=== PATIENT | female | born 1970 | race Caucasian/White ===

== ENCOUNTER 2018-02-04 15:24 | Outpatient (REF) | payer BC, SELFPAY ==
[2018-02-04 22:32] LABS: ALT 48 U/L (12-78); AST 27 U/L (15-37); Albumin 3.5 g/dL (3.4-5.0); Alkaline Phosphatase 100 U/L (46-116); Anion Gap 10.1 mmol/L (3-11); BUN 14 mg/dL (7-18); Bilirubin, Total 1.3 mg/dL (0.2-1.0); CO2 25.9 mmol/L (21.0-32.0); CREATININE 0.61 mg/dL (0.55-1.02); Calcium 8.4 mg/dL (8.5-10.1); Chloride 100 mmol/L (98-107); Glucose 299 mg/dL (70-100); Potassium 4.3 mmol/L (3.5-5.1); Sodium 136 mmol/L (136-145); Total Protein 7.2 g/dL (6.4-8.2)
== END 2018-02-04 15:44 ==
LOC: NCHCN 15:24
PROVIDERS: PCP Nurse Practitioner Family; Visit Provider Nurse Practitioner Family
DX: E11.65 Type 2 diabetes mellitus with hyperglycemia (principal); I10 Essential (primary) hypertension; E78.5 Hyperlipidemia, unspecified; F39 Unspecified mood [affective] disorder; G47.30 Sleep apnea, unspecified; E66.9 Obesity, unspecified
CPT/HCPCS: 80053; 83036

== ENCOUNTER 2018-03-25 12:14 | Outpatient (CLI) | payer BC, SELFPAY ==
[2018-03-25 15:16] LABS: Hemoglobin A1C 10.3 % (4.5-6.2)
[2018-03-26 17:26] LABS: Fructosamine 342 mcmol/L (200 - 285)
== END 2018-03-25 12:34 ==
PROVIDERS: PCP Nurse Practitioner Family; Visit Provider Internal Medicine Endocrinology, Diabetes & Metabolism
DX: E11.65 Type 2 diabetes mellitus with hyperglycemia (principal)
CPT/HCPCS: 36415; 82985; 83036

== ENCOUNTER 2018-05-17 01:20 | Outpatient (CLI) | payer BC, SELFPAY ==
[2018-05-17] MEDS: Gadoterate meglumine 20 ML VIAL IVP (09:36)
--- NOTE | 2018-05-17 09:51 | DI.MRI_ITS ---
SYMPTOM/DIAGNOSIS: H/O L 4-5 DISCECTOMY, LT SCIATICA, CONTINUED PAIN RADIATING DOWN LEG LUMBAR SPINE MRI: Comparison is made with 11/13/16. T 1, T 2 and STIR sagittal, T 1 and T 2 axial and pre and post Dotarem fat suppressed T 1 axial and sagittal sequences were performed. The patient is status post surgery at L 4-5 for the previously noted left paracentral disc herniation. There is surgical scarring in the posterior soft tissues at this level. There is enhancement seen in the location of the previously noted herniated disc on the left in the left paracentral region extending along the left side of the canal at the level of the left laminectomy. The findings are consistent with post surgical scarring. There are mild facet degenerative changes and no neural foraminal narrowing at any level. There are stable degenerative disc changes at L 5-S 1 with mild disc bulging slightly eccentric toward the left. There is no significant central canal stenosis at any level. The more superior discs are intact. The conus medullaris appears normal. There are degenerative signal changes in the vertebral endplates at L 5-S 1. The marrow signal is otherwise normal. The aorta is normal in diameter. IMPRESSION: Findings consistent with left side post surgical scarring at L 4- 5 in the previous location of the left paracentral disc herniation.
== END 2018-05-17 01:40 ==
PROVIDERS: PCP Nurse Practitioner Family; Visit Provider Nurse Practitioner Family
DX: M54.42 Lumbago with sciatica, left side (principal); M54.17 Radiculopathy, lumbosacral region; M47.27 Other spondylosis with radiculopathy, lumbosacral region; Z98.890 Other specified postprocedural states
CPT/HCPCS: 72158

== ENCOUNTER 2018-08-01 12:54 | Outpatient (CLI) | payer BC, SELFPAY ==
[2018-08-02 16:34] LABS: Fructosamine 327 mcmol/L (200 - 285)
== END 2018-08-01 13:14 ==
PROVIDERS: PCP Nurse Practitioner Family; Visit Provider Internal Medicine Endocrinology, Diabetes & Metabolism
DX: E11.65 Type 2 diabetes mellitus with hyperglycemia (principal)
CPT/HCPCS: 36415; 82985

== ENCOUNTER 2018-08-06 16:34 | Outpatient (REF) | payer BC, SELFPAY ==
[2018-08-06 22:04] LABS: Abs Immature Grans 0.03 k/cumm (0.0-0.09); Absolute Basophil Count 0.03 k/cumm (0.0-0.2); Absolute Eosinophil Count 0.69 k/cumm (0.0-0.7); Absolute Lymphocyte Count 3.33 k/cumm (1.2-3.4); Absolute Monocyte Count 0.76 k/cumm (0.11-0.7); Absolute Neutrophil Count 4.61 k/cumm (1.2-6.7); Basophils % 0.3; Eosinophils % 7.3; HCT 45.4 % (36.0-46.0); HGB 14.7 g/dL (12.0-15.5); Immature Grans % 0.3; Lymphocytes % 35.2; Mean Corp. HGB Concentration 32.4 g/dL (32.0-36.0); Mean Corpuscular Hemoglobin 27.9 pg (27.0-33.0); Mean Corpuscular Volume 86.1 fL (80-95); Mean Platelet Volume 12.2 fL (8.0-11.0); Neutrophils % 48.9; Platelet Count 292 x1000/uL (130-400); RBC 5.27 m/cumm (4.00-5.20); RBC Distribution Width 13.4 % (11.7-14.6); White Blood Cell Count 9.45 k/cumm (4.4-10.8)
[2018-08-06 22:20] LABS: TSH (W/Ref FT4) 1.42 uIU/mL (0.358-3.74)
== END 2018-08-06 16:54 ==
LOC: NCHCN 16:34
PROVIDERS: PCP Nurse Practitioner Family; Visit Provider Nurse Practitioner Family
DX: E78.5 Hyperlipidemia, unspecified (principal); I10 Essential (primary) hypertension; F39 Unspecified mood [affective] disorder; G25.81 Restless legs syndrome; G47.33 Obstructive sleep apnea (adult) (pediatric); N39.46 Mixed incontinence
CPT/HCPCS: 84443; 85025

== ENCOUNTER 2018-08-20 00:21 | Outpatient (CLI) | payer BC, SELFPAY ==
--- NOTE | 2018-08-20 12:49 | DI.US_ITS ---
SYMPTOMS/DIAGNOSIS: SKIN NODULE, R22.9, LEFT SIDE ULTRASOUND OF THE NECK: The palpable abnormality corresponds to an enlarged lymph node measuring 2.6 cm in length x 0.6 x 0.9 cm. Other smaller lymph nodes are seen, which also appear mildly enlarged. IMPRESSION: Multiple enlarged lymph nodes on the left side of the neck, consistent with the patient's history of Castleman's disease.
== END 2018-08-20 00:41 ==
PROVIDERS: PCP Nurse Practitioner Family; Visit Provider Nurse Practitioner Family
DX: R22.1 Localized swelling, mass and lump, neck (principal); R59.0 Localized enlarged lymph nodes; D47.Z2 Castleman disease
CPT/HCPCS: 76536

== ENCOUNTER 2018-09-25 00:40 | Outpatient (CLI) | payer BC, SELFPAY ==
--- NOTE | 2018-09-25 08:00 | DI.US_ITS ---
SYMPTOM/DIAGNOSIS: ENLARGED LYMPH NODES R59.9 THYROID ULTRASOUND: Routine examination was performed. The left lobe measures 4.3 x 1.2 x 1.7 cm. No cystic or solid masses are seen in the left lobe. There is normal blood flow to the left lobe of the thyroid gland. The right lobe measures 4.3 x 1.7 x 1.7 cm. There are a few tiny well circumscribed cystic lesions in the right lobe. The largest measures 0.4 cm in diameter. No internal blood flow is seen. No associated echogenic foci are seen to suggest calcification. There is normal blood flow to the right lobe of the thyroid gland. The isthmus is within normal limits. There is a 4 mm cystic lesion in the isthmus. No internal blood flow or calcification is identified. IMPRESSION: Benign appearing cystic thyroid lesions. No findings are seen in these lesions to suggest malignancy.
== END 2018-09-25 01:00 ==
PROVIDERS: PCP Nurse Practitioner Family; Visit Provider Otolaryngology Otolaryngology/Facial Plastic Surgery
DX: R59.0 Localized enlarged lymph nodes (principal); E04.2 Nontoxic multinodular goiter
CPT/HCPCS: 76536

== ENCOUNTER 2018-10-03 11:38 | Outpatient (CLI) | payer BC, SELFPAY ==
[2018-10-03 13:58] LABS: Ferritin 83 ng/mL (8-388)
== END 2018-10-03 11:58 ==
PROVIDERS: PCP Nurse Practitioner Family; Visit Provider Nurse Practitioner
DX: M25.50 Pain in unspecified joint (principal)
CPT/HCPCS: 36415; 82728

== ENCOUNTER 2018-10-23 17:13 | Emergency (ER) | payer BC, SELFPAY ==
[2018-10-23] VITALS (7 sets, daily range): BP systolic 124–137; BP diastolic 76–88; PULSE 102–118; RESP 14–18; TEMP 37.1; O2SAT 91–95
[2018-10-23] MEDS: Normal Saline 1,000 ML 1000 ML IV ×3 (18:45→19:46)
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
[2018-10-23] MEDS: diazePAM 5 MG TAB PO (19:09)
[2018-10-23] MEDS: Ketorolac 30 MG/ML VIAL IVP (19:10)
[2018-10-23] MEDS: predniSONE 20 MG TAB 60 MG PO (19:10)
[2018-10-23 19:23] LABS: Abs Immature Grans 0.06 k/cumm (0.0-0.09); Absolute Basophil Count 0.04 k/cumm (0.0-0.2); Absolute Lymphocyte Count 3.76 k/cumm (1.2-3.4); Absolute Monocyte Count 0.88 k/cumm (0.11-0.7); Basophils % 0.3; Eosinophils % 3.6; HCT 46.3 % (36.0-46.0); HGB 15.5 g/dL (12.0-15.5); Immature Grans % 0.4; Lymphocytes % 26.9; Mean Corp. HGB Concentration 33.5 g/dL (32.0-36.0); Mean Corpuscular Volume 83.7 fL (80-95); Mean Platelet Volume 11.4 fL (8.0-11.0); Monocytes % 6.3; Neutrophils % 62.5; Platelet Count 336 x1000/uL (130-400); RBC 5.53 m/cumm (4.00-5.20); RBC Distribution Width 13.3 % (11.7-14.6); White Blood Cell Count 13.98 k/cumm (4.4-10.8)
[2018-10-23 19:24] LABS: Absolute Neutrophil Count 8.74 k/cumm (1.2-6.7)
[2018-10-23 19:40] LABS: Anion Gap 9.7 mmol/L (3-11); BUN 12 mg/dL (7-18); CO2 26.3 mmol/L (21.0-32.0); CREATININE 0.83 mg/dL (0.55-1.02); Calcium 9.1 mg/dL (8.5-10.1); Chloride 100 mmol/L (98-107); Glucose 360 mg/dL (70-100); Sodium 136 mmol/L (136-145)
[2018-10-23 19:58] LABS: D-Dimer 349 ng/mlFEU (<500)
[2018-10-23] MEDS: oxyCODONE 5 MG TAB 15 MG PO (20:28)
== END 2018-10-23 20:34 | disposition home or self-care (01) ==
PROVIDERS: Emergency Provider Physician Assistant; PCP Nurse Practitioner Family
DX: M54.5 Low back pain (principal); G89.29 Other chronic pain; R42 Dizziness and giddiness; E11.65 Type 2 diabetes mellitus with hyperglycemia; Z79.4 Long term (current) use of insulin; I10 Essential (primary) hypertension; E11.40 Type 2 diabetes mellitus with diabetic neuropathy, unspecified
CPT/HCPCS: 36415; 80048; 93005; 96360; 96361; 99284; 85025; 85379; 93010; 99285; J1885; J7512

== ENCOUNTER 2018-11-05 13:19 | Outpatient (CLI) | payer BC, SELFPAY ==
[2018-11-05 14:08] LABS: Hemoglobin A1C 10.8 % (4.5-6.2)
[2018-11-05 14:10] LABS: COMMENT (LAB VIEW ONLY) 111.47 mg/dL; Microalb ug/mg Crea 38.8 ug/mg Cr
[2018-11-06 15:55] LABS: Fructosamine 368 mcmol/L (200 - 285)
== END 2018-11-05 13:39 ==
PROVIDERS: PCP Nurse Practitioner Family; Visit Provider Internal Medicine Endocrinology, Diabetes & Metabolism
DX: E11.65 Type 2 diabetes mellitus with hyperglycemia (principal)
CPT/HCPCS: 36415; 82043; 82570; 82985; 83036

== ENCOUNTER 2018-11-07 13:18 | Outpatient (REF) | payer BC, SELFPAY ==
[2018-11-07 21:39] LABS: ALT 59 U/L (14-59); AST 28 U/L (15-37); Albumin 3.5 g/dL (3.4-5.0); Alkaline Phosphatase 82 U/L (46-116); Bilirubin, Total 0.9 mg/dL (0.2-1.0); Magnesium 1.3 mg/dL (1.8-2.4); Total Protein 7.6 g/dL (6.4-8.2)
[2018-11-07 22:30] LABS: Vitamin B12 484 pg/mL (193-986)
[2018-11-07 23:10] LABS: Vitamin D 25 Total 56.2 ng/ml (30-100)
== END 2018-11-07 13:38 ==
LOC: NCHCN 13:18
PROVIDERS: PCP Nurse Practitioner Family; Visit Provider Nurse Practitioner Family
DX: F39 Unspecified mood [affective] disorder (principal); G47.30 Sleep apnea, unspecified; R00.0 Tachycardia, unspecified; I10 Essential (primary) hypertension; E78.5 Hyperlipidemia, unspecified; E11.65 Type 2 diabetes mellitus with hyperglycemia; N39.46 Mixed incontinence; E66.9 Obesity, unspecified; M54.32 Sciatica, left side
CPT/HCPCS: 80076; 82306; 82607; 83735

== ENCOUNTER 2018-11-14 02:39 | Outpatient (CLI) | payer BC, SELFPAY ==
--- NOTE | 2018-11-18 11:23 | HOLTER_ITS ---
DATE OF DICTATION: November 18, 2018 STUDY INDICATION: Tachycardia. REQUESTING PROVIDER: Not available. FINDINGS: The patient was monitored for 2 days. Baseline sinus rhythm. Average heart rate 94 bpm, range 74 to 149 bpm. Rare ectopy. No ventricular or supraventricular tachycardia. No high-degree heart block. No pauses greater than 3 seconds. No patient events. FINAL INTERPRETATION: Normal study.
== END 2018-11-14 02:59 ==
PROVIDERS: PCP Nurse Practitioner Family; Visit Provider Nurse Practitioner Family
DX: R00.0 Tachycardia, unspecified (principal)
CPT/HCPCS: 93225

== ENCOUNTER 2018-11-18 09:13 | Outpatient (CLI) | payer BC, SELFPAY | END 2018-11-18 09:33 | PROVIDERS: PCP Nurse Practitioner Family; Visit Provider Nurse Practitioner Family | DX: R00.0 Tachycardia, unspecified (principal) | CPT/HCPCS: 93226 ==

== ENCOUNTER 2018-12-11 12:29 | Outpatient (CLI) | payer BC, SELFPAY ==
--- NOTE | 2018-12-11 15:33 | DI.US_ITS ---
EXAM: US SOFT TISSUE HEAD OR NECK CLINICAL HISTORY: CASTLETMAN'S DISEASE, R59.9, NEW LEFT CERVICAL ADENOPATHY. TECHNIQUE: Ultrasound performed using standard protocol. COMPARISON: No exams were available for comparison FINDINGS: Ultrasound examination of the cervical region was performed in a patient with known Castleman's disea se. The patient reportedly has new left cervical adenopathy. Ultrasound examination of the neck jovan ws multiple enlarged lymph nodes, the largest about 25 x 15 x 13 millimeters in diameter with poorly defined hilum consistent with a pathologic node. Slightly increased vascular flow noted in the large st node. Prior study showed largest left cervical lymph node about 22 millimeters in greatest diamet er. CT would provide more accurate evaluation of total cervical lymphadenopathy. IMPRESSION:
== END 2018-12-11 12:49 ==
PROVIDERS: PCP Nurse Practitioner Family; Visit Provider Internal Medicine Hematology & Oncology
DX: R59.0 Localized enlarged lymph nodes (principal); D47.Z2 Castleman disease
CPT/HCPCS: 76536

== ENCOUNTER 2018-12-23 11:08 | Outpatient (CLI) | payer BC, SELFPAY ==
[2018-12-23 12:37] LABS: Anion Gap 9.2 mmol/L (3-11); BUN 14 mg/dL (7-18); CO2 27.8 mmol/L (21.0-32.0); CREATININE 0.63 mg/dL (0.55-1.02); Calcium 8.5 mg/dL (8.5-10.1); Chloride 99 mmol/L (98-107); Glucose 252 mg/dL (70-100); Potassium 4.4 mmol/L (3.5-5.1); Sodium 136 mmol/L (136-145)
[2018-12-23 14:52] LABS: Magnesium 1.5 mg/dL (1.8-2.4)
[2018-12-24 17:02] LABS: Fructosamine 346 mcmol/L (200 - 285)
== END 2018-12-23 11:28 ==
PROVIDERS: PCP Nurse Practitioner Family; Visit Provider Internal Medicine Endocrinology, Diabetes & Metabolism
DX: E83.42 Hypomagnesemia (principal); R00.0 Tachycardia, unspecified; I10 Essential (primary) hypertension; E11.65 Type 2 diabetes mellitus with hyperglycemia
CPT/HCPCS: 36415; 80048; 82985; 83735

== ENCOUNTER 2019-02-06 14:30 | Outpatient (REF) | payer BC, SELFPAY ==
[2019-02-06 22:04] LABS: Anion Gap 10.8 mmol/L (3-11); BUN 13 mg/dL (7-18); CO2 26.2 mmol/L (21.0-32.0); CREATININE 0.75 mg/dL (0.55-1.02); Calcium 9.1 mg/dL (8.5-10.1); Chloride 100 mmol/L (98-107); Glucose 370 mg/dL (74-106); Magnesium 1.4 mg/dL (1.8-2.4); Potassium 4.6 mmol/L (3.5-5.1); Sodium 137 mmol/L (136-145)
== END 2019-02-06 14:50 ==
LOC: NCHCN 14:30
PROVIDERS: PCP Nurse Practitioner Family; Visit Provider Nurse Practitioner Family
DX: E83.42 Hypomagnesemia (principal); E11.65 Type 2 diabetes mellitus with hyperglycemia; R51 Headache; R00.0 Tachycardia, unspecified; F43.23 Adjustment disorder with mixed anxiety and depressed mood; J30.9 Allergic rhinitis, unspecified
CPT/HCPCS: 80048; 83735

== ENCOUNTER 2019-03-18 14:04 | Outpatient (REF) | payer BC, SELFPAY ==
[2019-03-18 21:21] LABS: Magnesium 1.4 mg/dL (1.8-2.4)
== END 2019-03-18 14:24 ==
LOC: NCHCN 14:04
PROVIDERS: PCP Nurse Practitioner Family; Visit Provider Nurse Practitioner Family
DX: E83.42 Hypomagnesemia (principal)
CPT/HCPCS: 83735

== ENCOUNTER 2019-04-17 11:17 | Outpatient (REF) | payer BC, SELFPAY ==
[2019-04-17 21:35] LABS: Magnesium 1.4 mg/dL (1.8-2.4)
== END 2019-04-17 11:37 ==
LOC: NCHCN 11:17
PROVIDERS: PCP Nurse Practitioner Family; Visit Provider Nurse Practitioner Family
DX: E83.42 Hypomagnesemia (principal)
CPT/HCPCS: 83735

== ENCOUNTER 2019-08-15 10:54 | Outpatient (REF) | payer BC, SELFPAY ==
[2019-08-15 21:19] LABS: Magnesium 1.6 mg/dL (1.8-2.4)
== END 2019-08-15 11:14 ==
LOC: NCHCN 10:54
PROVIDERS: PCP Nurse Practitioner Family; Visit Provider Nurse Practitioner Family
DX: R11.0 Nausea (principal); R51 Headache; E83.42 Hypomagnesemia; F41.8 Other specified anxiety disorders; E11.65 Type 2 diabetes mellitus with hyperglycemia; I10 Essential (primary) hypertension; E78.5 Hyperlipidemia, unspecified
CPT/HCPCS: 83735

== ENCOUNTER 2019-10-21 02:33 | Outpatient (CLI) | payer BC, SELFPAY ==
[2019-10-21 15:49] LABS: ALT 66 U/L (14-59); AST 34 U/L (15-37); Albumin 3.4 g/dL (3.4-5.0); Alkaline Phosphatase 108 U/L (46-116); BUN 18 mg/dL (7-18); CREATININE 0.76 mg/dL (0.55-1.02); Calcium 9.2 mg/dL (8.5-10.1); Chloride 100 mmol/L (98-107); Glucose 281 mg/dL (74-106); Potassium 4.5 mmol/L (3.5-5.1); Sodium 138 mmol/L (136-145); Total Protein 7.4 g/dL (6.4-8.2)
[2019-10-21 16:33] LABS: Hemoglobin A1C 11.1 % (3.8-5.6)
[2019-10-23 10:04] LABS: Fructosamine 324 mcmol/L (200 - 285)
== END 2019-10-21 02:53 ==
PROVIDERS: PCP Nurse Practitioner Family; Visit Provider Internal Medicine Endocrinology, Diabetes & Metabolism
DX: E11.65 Type 2 diabetes mellitus with hyperglycemia (principal)
CPT/HCPCS: 36415; 80053; 82985; 83036

== ENCOUNTER 2019-10-27 10:56 | Outpatient (CLI) | payer BC, SELFPAY ==
--- NOTE | 2019-10-27 11:20 | DI.RAD_ITS ---
EXAM: XR CHEST 2V PA LATERAL CLINICAL HISTORY: CHEST WALL PAIN R07.89, LT BREAST PAIN N64.4 TECHNIQUE: COMPARISON: CR CHEST 2 VIEWS PA,LAT from 03/28/2017 FINDINGS: The heart is not enlarged. In comparison with prior radiographs of March 2017, there is question o f new area faint consolidation involving the lingula. Mild elevation of diaphragm noted on the left unchanged from prior radiographs. No pleural effusion or pneumothorax. Lungs are otherwise clear. IMPRESSION: Question consolidation or atelectasis in the lingula. Possibility of infectious process is raised. Follow-up radiographs requested following treatment. RADIATION DOSE DELIVERED: Total DLP
== END 2019-10-27 11:16 ==
PROVIDERS: PCP Nurse Practitioner Family; Visit Provider Nurse Practitioner Family
DX: R07.89 Other chest pain (principal); R91.8 Other nonspecific abnormal finding of lung field
CPT/HCPCS: 71046

== ENCOUNTER 2019-10-28 01:03 | Outpatient (CLI) | payer BC, SELFPAY ==
--- NOTE | 2019-10-28 | DI.US_ITS ---
EXAM: MG MAMMO DIAGNOSTIC BI CLINICAL HISTORY: DIAGNOSTIC, LT BREAST MASS,N63.0,LT BREAST MASS,N64.4 TECHNIQUE: Mammograms were interpreted according to the usual protocol including computer analysis w [employer] CAD system, tomosynthesis and C-view imaging. COMPARISON: FINDINGS: Left breast mammogram and left breast ultrasound are interpreted conjunction. The patient reportedly has question of a palpable area of abnormality of the 2 o'clock position of the left breast. The breasts of moderate density with fairly symmetrical distribution of fibroglandular tissue. No do minant mass or clumped microcalcification is identified in either breast. The current examination is compared with previous examination of September 2017 and there has been no gross interval change appearan ce since that time. Breast ultrasound shows no evidence of a mass or cyst in the region of questionable palpable abnormal ity or elsewhere in the breast. IMPRESSION: No specific evidence of malignancy at this time. The negative mammogram and ultrasound not absolutel y exclude the possibility of malignancy and should not preclude biopsy of any clinically suspicious p alpable breast mass. Routine screening examinations suggested at yearly intervals in this age group according to the ACS ACR guidelines. BI-RADS Category 1 - Negative Breast Density - Category B - Scattered areas of fibroglandular density
== END 2019-10-28 01:23 ==
PROVIDERS: PCP Nurse Practitioner Family; Visit Provider Nurse Practitioner Family
DX: N64.4 Mastodynia (principal); N63.20 Unspecified lump in the left breast, unspecified quadrant; Z12.39 Encounter for other screening for malignant neoplasm of breast
CPT/HCPCS: 76642; 77062; 77066; G0279

== ENCOUNTER 2019-10-28 03:25 | Outpatient (CLI) | payer BC, SELFPAY ==
[2019-10-28 11:46] LABS: Creatine Kinase 113 U/L (26-192); Troponin I < 0.05 ng/mL (<0.06)
== END 2019-10-28 03:45 ==
PROVIDERS: PCP Nurse Practitioner Family; Visit Provider Nurse Practitioner Family
DX: R07.89 Other chest pain (principal); N64.4 Mastodynia
CPT/HCPCS: 36415; 82550; 84484

== ENCOUNTER 2019-10-31 03:11 | Outpatient (CLI) | payer BC, SELFPAY ==
[2019-11-02 02:33] LABS: COVID-19 RT-PCR Result NEGATIVE (Negative)
== END 2019-10-31 03:31 ==
PROVIDERS: PCP Nurse Practitioner Family; Visit Provider Nurse Anesthetist, Certified Registered
DX: Z11.59 Encounter for screening for other viral diseases (principal); Z01.818 Encounter for other preprocedural examination
CPT/HCPCS: U0003

== ENCOUNTER 2020-01-06 14:03 | Outpatient (REF) | payer BC, SELFPAY ==
[2020-01-06 21:48] LABS: ALT 65 U/L (14-59); AST 40 U/L (15-37); Albumin 3.6 g/dL (3.4-5.0); Alkaline Phosphatase 121 U/L (46-116); Anion Gap 7.7 mmol/L (3-11); BUN 13 mg/dL (7-18); Bilirubin, Total 0.8 mg/dL (0.2-1.0); CO2 28.3 mmol/L (21.0-32.0); CREATININE 0.82 mg/dL (0.55-1.02); Calcium 9.1 mg/dL (8.5-10.1); Chloride 100 mmol/L (98-107); Glucose 261 mg/dL (74-106); Magnesium 1.4 mg/dL (1.8-2.4); Potassium 4.5 mmol/L (3.5-5.1); Sodium 136 mmol/L (136-145); Total Protein 7.7 g/dL (6.4-8.2)
== END 2020-01-06 14:23 ==
LOC: NCHCN 14:03
PROVIDERS: PCP Nurse Practitioner Family; Visit Provider Nurse Practitioner Family
DX: E11.65 Type 2 diabetes mellitus with hyperglycemia (principal); K59.03 Drug induced constipation; R07.89 Other chest pain; R11.0 Nausea; F41.8 Other specified anxiety disorders; F43.23 Adjustment disorder with mixed anxiety and depressed mood; L40.50 Arthropathic psoriasis, unspecified; G47.30 Sleep apnea, unspecified
CPT/HCPCS: 80053; 83735

== ENCOUNTER 2020-01-26 04:38 | Outpatient (CLI) | payer BC, SELFPAY ==
[2020-01-26 12:50] LABS: ALT 57 U/L (14-59); AST 36 U/L (15-37); Albumin 3.4 g/dL (3.4-5.0); Alkaline Phosphatase 113 U/L (46-116); Anion Gap 11.3 mmol/L (3-11); BUN 13 mg/dL (7-18); Bilirubin, Total 0.8 mg/dL (0.2-1.0); CO2 25.7 mmol/L (21.0-32.0); CREATININE 0.73 mg/dL (0.55-1.02); Calcium 8.3 mg/dL (8.5-10.1); Chloride 101 mmol/L (98-107); Glucose 272 mg/dL (74-106); Potassium 4.2 mmol/L (3.5-5.1); Sodium 138 mmol/L (136-145); Total Protein 7.3 g/dL (6.4-8.2)
[2020-01-26 14:25] LABS: Hemoglobin A1C 7.8 % (<5.7)
[2020-01-27 17:15] LABS: Fructosamine 237 mcmol/L (200 - 285)
== END 2020-01-26 04:58 ==
PROVIDERS: PCP Nurse Practitioner Family; Visit Provider Internal Medicine Endocrinology, Diabetes & Metabolism
DX: E11.65 Type 2 diabetes mellitus with hyperglycemia (principal)
CPT/HCPCS: 36415; 80053; 82985; 83036

== ENCOUNTER 2020-02-23 03:05 | Outpatient (CLI) | payer BC, SELFPAY ==
[2020-02-24 21:50] LABS: COVID-19 RT-PCR UVMMC Result Negative (Negative)
== END 2020-02-23 03:25 ==
PROVIDERS: Surgery; PCP Nurse Practitioner Family; Visit Provider Nurse Anesthetist, Certified Registered
DX: Z11.59 Encounter for screening for other viral diseases (principal); Z01.818 Encounter for other preprocedural examination
CPT/HCPCS: U0003

== ENCOUNTER 2020-03-01 03:30 | Outpatient (CLI) | payer BC, SELFPAY ==
[2020-03-03 09:39] LABS: COVID-19 RT-PCR Result NEGATIVE (Negative)
== END 2020-03-01 03:50 ==
PROVIDERS: PCP Nurse Practitioner Family; Visit Provider Surgery
DX: Z11.59 Encounter for screening for other viral diseases (principal); Z01.818 Encounter for other preprocedural examination
CPT/HCPCS: U0003

== ENCOUNTER 2020-03-04 07:12 | Day surgery (SDC) | payer BC, SELFPAY ==
[2020-03-04 07:08] VITALS: BP 95/51; PULSE 91; RESP 20; TEMP 36.7; O2SAT 95
[2020-03-04] MEDS: Lactated Ringers 1,000 ML 80 ML IV (07:47)
--- NOTE | 2020-03-04 10:08 | STOM_PTH ---
PATIENT: VU PARRA LOC: [facility] U#:[id number] AGE/SX: 49/F ROOM: RE03/04/[address]: Kyung Aburto : 1970 BED: DIS: 03/04/2020 SPEC #: [id number] RECD: 03/04/20 12:53 STATUS: HUBERT REQ #: [id number] CAROL: 03/04/20 10:[address]: Kyung Aburto DEPT: Surgical Specimen RECD BY: Alisha Nix ENTERED: 03/04/20 12:54 SP TYPE: STOMACH OTHR DR: Leslie Sherman Tissues: 1 - BIOPSY BOWEL 2 - STOMACH BIOPSY 3 - ESOPHAGUS BIOPSY Procedures: GROSS AND MICRO LEVEL 4 Comments: [id number]
--- NOTE | 2020-03-04 10:18 | ENDO_ITS ---
Date of service: 03/04/20 Time of Service: 10:18 Endoscopy Report DATE OF PROCEDURE: 03/04/20 PRE-OP DIAGNOSIS: gerd/abdominal pain POST-OP DIAGNOSIS: other (mild gasritis. still had lg volume of food. ) SURGEON: Kyung Aburto ANESTHESIA: MAC ESTIMATED BLOOD LOSS: 0 PATHOLOGY: other DISPOSITION: same day PROCEDURE DESCRIPTION: After informed consent was obtained the patient was take to the procedure room and placed in a supine position. Monitors were applied and a time out was done. The patients name, date of , procedure type, allergies to medications and metal in their body was reviewed. A bite block was placed and the patient was sedated. Once sedated and comfortable the gas troscope was advanced through the oropharynx which was grossly normal into the esophagus. The proximal and mid-esophagus were nl. In the distal esophagus there was: No esophageal erosions, varices, diverticulum, or stricture apparent. There is no hiatal hernia. The scope was advanced into the stomach. The stomach was still full of food. This obscured at least 25 to 30%/the lower portion of the stomach. I was able to work the scope into the duodenum. The duodenum appeared normal. Biopsies were done of the duodenum and antrum and at the GE junction. The duodenum was noted to be nl. Biopsies were done. I did attempt to suction out the stomach, the pieces were quite large and kept clogging up the scope. The scope was retroflexed. The cardia and fundus were noted to be normal-what I could visualize. The scope was retracted back into the esophagus and biopsies were done of the GE junction to rule out Rodney's. At this point I did discuss the patient's full stomach with anesthesia. We determined that in light of her having basically a full stomach, that this was an unsafe procedure. The patient has a BMI of 46/diabetes mellitus/sleep apnea/diabetes with neuropathy and a full stomach. The EGD was ended and the colonoscopy was not attempted. Patient was brought back to same day. She did not appear to aspirate The scope was removed and the patient was woken up and taken back to [facility] in stable condition.
[2020-03-04 10:46] VITALS: BP 117/64; PULSE 92; RESP 15; TEMP 36.3; O2SAT 94
--- NOTE | 2020-03-04 11:21 | W.PM.DSUDISC ---
Discharge Plan Disposition Patient Disposition: HOME Condition: Good Discharge Details Reason For Visit: stomach scope Attending Provider: Kyung Aburto Primary Care Provider: Leslie Sherman Home Meds and New Rx's Prescriptions: New omeprazole 20 mg capsule,delayed release(DR/EC) 20 mg PO DAILY Qty: 30 RF: 12 Continued insulin lispro [Humalog KwikPen Insulin] 100 unit/mL insulin pen See Rx Instructions SC AC RF: 0 oxycodone 5 mg tablet 5 mg PO Q6H PRNRF: 0 atorvastatin 20 MG tablet 20 mg PO DAILY RF: 0 Mirena 1 EACH intrauterine device 1 ea Intrauterine ONCE Qty: 1 RF: 0 Lantus Solostar U-100 Insulin 100 UNIT/1 ML insulin pen 65 units SQ HS RF: 0 gabapentin 300 mg capsule 900 mg PO TID RF: 0 metformin 500 mg tablet 1,000 mg PO BID RF: 0 Cosentyx (2 Syringes) 150 mg/mL syringe 150 mg SC QMONTH RF: 0 spironolactone 25 mg tablet 25 mg PO DAILY RF: 0 Slow-Mag 71.5 mg tablet,delayed release (DR/EC) 71.5 mg PO BID RF: 0 sennosides [Senna Lax] 8.6 mg tablet 17.2 mg PO QHS RF: 0 Trulicity 1.5 mg/0.5 mL pen injector 1.5 mg subcut QWEEK RF: 0 nystatin 100,000 unit/gram cream 1 applic topical BID RF: 0 epinephrine 0.3 MG/0.3 ML auto-injector 0.3 mg IJ PRN PRN (Reason: Anaphylaxis) Qty: 1 RF: 0 loratadine 10 MG tablet 10 mg PO QAM RF: 0 losartan 25 mg tablet 50 mg PO HS RF: 0 tolterodine [Detrol] 2 MG tablet 2 mg PO BID RF: 0 cholecalciferol (vitamin D3) [Vitamin D3] 2,000 unit Capsule 2,000 unit PO DAILY RF: 0 duloxetine [Cymbalta] 60 mg Capsule,Delayed Release(Dr/Ec) 60 mg PO DAILY RF: 0 methocarbamol [Robaxin-750] 750 mg tablet 750 mg PO QID PRN (Reason: muscle spasm) Qty: 10 RF: 0 ibuprofen 600 mg tablet 600 mg PO Q6H PRN (Reason: pain) Qty: 20 RF: 0 Discontinued pantoprazole [Protonix] 40 mg tablet,delayed release (DR/EC) 40 mg PO HS RF: 0 Discharge Instructions Additional Instructions: Findings:retained solid food in stomach Follow up: My office will contact you after the gastric emptying study is complete. Please call if you develop: fevers >101.5 Nausea or Vomiting Abdominal pain that is not transient DAY SURGERY UNIT POST COLONOSCOPY INSTRUCTIONS 1. Because there will be medication in your system for the next 24 hours, you may feel a little sleepy. Your coordination will be affected. Therefore: a. Do not drive or operate dangerous equipment for 24 hours. b. Do not drink alcohol beverages for 24 hours (not even beer). c. Plan to go home and rest for the day. 2. Generally there are no restrictions on your activity after a day or so has gone by, but you may feel a bit fatigued for a few days. 3 After you arrive home you may have a light meal and return to a normal diet as you can tolerate it without feeling sick to your stomach. 4. After surgery, you may feel pain or discomfort. This should be only transient, but if it persists please contact your doctor. 5. If there are any questions regarding the findings of your procedure, please feel free to contact your doctor. 6. If you are unable to contact your doctor with a problem, contact the hospital at [phone]. 7. Continue all your regular medications unless directed otherwise. I understand the above instructions and have no questions. Signature of Patient or Responsible Adult Escort Date/Time Name of Responsible Adult Escort Signature of Nurse Date/Time Stand Alone Forms: Sasha Brewster (HANNAHU) Activity:: no lifting over 20#'s or strenuous acitity x 24 hrs Diet:: small light meals x 24hrs Discharge Orders Discharge Orders: Discharge Order (Routine); Ordered 03/04/20 Ordered By: Kyung Aburto
[2020-03-04 11:28] VITALS: BP 121/64; PULSE 94; RESP 17; TEMP 36.3; O2SAT 94
== END 2020-03-04 11:40 | disposition home or self-care (01) ==
PROVIDERS: PCP Nurse Practitioner Family; Visit Provider Surgery
PROC: (CPT 43239; principal; 2020-03-04 08:15)
DX: R10.9 Unspecified abdominal pain (principal); K21.9 Gastro-esophageal reflux disease without esophagitis; K29.50 Unspecified chronic gastritis without bleeding; E66.1 Drug-induced obesity; Z68.42 Body mass index [BMI] 45.0-49.9, adult; E11.42 Type 2 diabetes mellitus with diabetic polyneuropathy
CPT/HCPCS: 43239; 88305; J2001

== ENCOUNTER 2020-03-12 04:24 | Outpatient (CLI) | payer BC, SELFPAY ==
--- NOTE | 2020-03-12 06:45 | DI.NM_ITS ---
CLINICAL HISTORY: gerd,diabetes,gastroparesis,k31.84,functional dyspepsia,k30,stomach atony. COMPARISON: No exams were available for comparison EXAMINATION: PO Dose: 1 mCi Sulfur colloid in test meal. Images: According to protocol. FINDINGS: Patient gastric emptying results: 1 hour: 99% [facility] normal gastric range: 37-90% residual. 2 hour: 79.8% [facility] normal gastric range: 30-60% residual. 4 hour: 70.1% [facility] normal gastric range: 0-10% residual. IMPRESSION: 1. Findings of delayed gastric emptying. SNM guidelines: 40% or more gastric emptying at 90 minutes is considered normal. Normal T 1/2 < 50 mi nutes. < 30% at 1 hour signifies abnormal rapid gastric emptying.
== END 2020-03-12 04:44 ==
PROVIDERS: PCP Nurse Practitioner Family; Visit Provider Surgery
DX: K30 Functional dyspepsia (principal); K31.84 Gastroparesis; K21.9 Gastro-esophageal reflux disease without esophagitis; E11.9 Type 2 diabetes mellitus without complications
CPT/HCPCS: 78265

== ENCOUNTER 2020-04-20 02:53 | Outpatient (CLI) | payer BC, SELFPAY ==
[2020-04-21 14:32] LABS: COVID-19 RT-PCR UVMMC Result Negative (Negative)
== END 2020-04-20 02:54 | disposition home or self-care (01) ==
LOC: LBO 02:54
PROVIDERS: PCP Nurse Practitioner Family; Visit Provider Surgery
DX: Z20.822 Contact with and (suspected) exposure to COVID-19 (principal); Z01.818 Encounter for other preprocedural examination
CPT/HCPCS: U0003

== ENCOUNTER 2020-04-23 00:32 | Day surgery (SDC) | payer BC, SELFPAY ==
--- NOTE | 2020-04-23 08:30 | DI.CT_ITS ---
EXAM: CT ABDOMEN PELVIS W CLINICAL HISTORY: GASTROPARESIS DUE TO DIABETES,GERD,CASTLEMAN DISEASE. TECHNIQUE: Imaging Protocol: Axial computed tomography images with coronal and sagittal reformatted images were created and reviewed CONTRAST MATERIAL: Intravenous: Omnipaque 350 Contrast volume:100 cc Oral: no COMPARISON: No exams were available for comparison FINDINGS: ABDOMEN: Lung Bases: Normal where visualized. Liver: Severe hepatic steatosis.. No measurable mass. Gallbladder and biliary tract: Status post cholecystectomy. No radiodense calculus or dilation. Pancreas: Normal density, no abnormal calcifications or inflammatory process. Spleen: Normal. Kidneys: Normal size, contour and axis. No radiodense stones or obstructive uropathy. No masses seen. Adrenal glands: No masses seen. Abdominal Aorta: Abdominal portion non-dilated. PELVIS: Bladder: Symmetric distention, no gross wall thickening. Bowel: No obstruction or bowel wall thickening. No abnormal gastric distension. Normal quantity of stool. Peritoneal cavity: No ascites, collection or mesenteric inflammatory response. Bones: Degenerative disc changes at L5-S1. Reproductive organs: IUD within the uterus. Simple appearing left ovarian cyst. Lymph nodes: Unremarkable. Impression: Marked hepatic steatosis, otherwise unremarkable CT scan of the abdomen and pelvis. RADIATION DOSE DELIVERED: 1,655.04mGy.cm Total DLP DATA REPOSITORY: All CT scans at this facility are submitted to the National Radiology Data Registry (NRDR) Dose Index Registry (DIR) with the [employer] ([employer]). RADIATION OPTIMIZATION: All CT scans at this facility use at least one of these dose optimization te chniques: automated exposure control; mA and/or kV adjustment per patient size (includes targeted exa ms where dose is matched to clinical indication); or iterative reconstruction.
[2020-04-23] MEDS: Normal Saline - Diluent 50 ML VIAL IV (13:49)
[2020-04-23] MEDS: Omnipaque 350 MG/ML 100 ML BTL IJ (13:49)
== END 2020-04-23 00:33 ==
LOC: DI 00:32
PROVIDERS: PCP Nurse Practitioner Family; Visit Provider Surgery
DX: D47.Z2 Castleman disease (principal); E11.42 Type 2 diabetes mellitus with diabetic polyneuropathy; E11.65 Type 2 diabetes mellitus with hyperglycemia; F11.90 Opioid use, unspecified, uncomplicated; K76.0 Fatty (change of) liver, not elsewhere classified; G47.00 Insomnia, unspecified; G47.30 Sleep apnea, unspecified; K21.9 Gastro-esophageal reflux disease without esophagitis; K30 Functional dyspepsia; Z68.42 Body mass index [BMI] 45.0-49.9, adult
CPT/HCPCS: 74177; J3490

== ENCOUNTER 2020-04-23 10:44 | Day surgery (SDC) | payer BC, SELFPAY ==
[2020-04-23 11:08] VITALS: BP 141/87; PULSE 104; RESP 16; TEMP 36.2; O2SAT 96
[2020-04-23] MEDS: Lactated Ringers 1,000 ML 80 ML IV (11:43)
[2020-04-23] MEDS: Metoclopramide 10 MG/2 ML VIAL IVP (11:43)
[2020-04-23 11:55] LABS: CREATININE 0.7 mg/dL (0.55-1.02)
--- NOTE | 2020-04-23 12:41 | W.PM.DSUDISC ---
Discharge Plan Disposition Patient Disposition: HOME Condition: Good Discharge Details Reason For Visit: colon scope and CT Attending Provider: Kyung Aburto Primary Care Provider: Leslie Sherman Home Meds and New Rx's Prescriptions: Continued insulin lispro [Humalog KwikPen Insulin] 100 unit/mL insulin pen See Rx Instructions SC AC RF: 0 Skyrizi 75 mg/0.83 mL syringe See Rx Instructions subcut PER PKG DIR RF: 0 oxycodone 5 mg tablet 5 mg PO Q6H PRNRF: 0 atorvastatin 20 MG tablet 20 mg PO DAILY RF: 0 Mirena 1 EACH intrauterine device 1 ea Intrauterine ONCE Qty: 1 RF: 0 Lantus Solostar U-100 Insulin 100 UNIT/1 ML insulin pen 65 units SQ HS RF: 0 gabapentin 300 mg capsule 900 mg PO TID RF: 0 metformin 500 mg tablet 1,000 mg PO BID RF: 0 spironolactone 25 mg tablet 25 mg PO DAILY RF: 0 Slow-Mag 71.5 mg tablet,delayed release (DR/EC) 71.5 mg PO BID RF: 0 sennosides [Senna Lax] 8.6 mg tablet 17.2 mg PO QHS RF: 0 Trulicity 1.5 mg/0.5 mL pen injector 1.5 mg subcut QWEEK RF: 0 nystatin 100,000 unit/gram cream 1 applic topical BID RF: 0 epinephrine 0.3 MG/0.3 ML auto-injector 0.3 mg IJ PRN PRN (Reason: Anaphylaxis) Qty: 1 RF: 0 loratadine 10 MG tablet 10 mg PO QAM RF: 0 losartan 25 mg tablet 50 mg PO HS RF: 0 tolterodine [Detrol] 2 MG tablet 2 mg PO BID RF: 0 cholecalciferol (vitamin D3) [Vitamin D3] 2,000 unit Capsule 2,000 unit PO DAILY RF: 0 duloxetine [Cymbalta] 60 mg Capsule,Delayed Release(Dr/Ec) 60 mg PO DAILY RF: 0 ibuprofen 600 mg tablet 600 mg PO Q6H PRN (Reason: pain) Qty: 20 RF: 0 omeprazole 20 mg capsule,delayed release(DR/EC) 20 mg PO DAILY Qty: 30 RF: 12 Discharge Instructions Additional Instructions: Findings: diverticula Follow up: w/ [facility] as previously scheduled Please call if you develop: fevers >101.5 Nausea or Vomiting Abdominal pain that is not transient DAY SURGERY UNIT POST COLONOSCOPY INSTRUCTIONS 1. Because there will be medication in your system for the next 24 hours, you may feel a little sleepy. Your coordination will be affected. Therefore: a. Do not drive or operate dangerous equipment for 24 hours. b. Do not drink alcohol beverages for 24 hours (not even beer). c. Plan to go home and rest for the day. 2. Generally there are no restrictions on your activity after a day or so has gone by, but you may feel a bit fatigued for a few days. 3 After you arrive home you may have a light meal and return to a normal diet as you can tolerate it without feeling sick to your stomach. 4. After surgery, you may feel pain or discomfort. This should be only transient, but if it persists please contact your doctor. 5. If there are any questions regarding the findings of your procedure, please feel free to contact your doctor. 6. If you are unable to contact your doctor with a problem, contact the hospital at [phone]. 7. Continue all your regular medications unless directed otherwise. I understand the above instructions and have no questions. Signature of Patient or Responsible Adult Escort Date/Time Name of Responsible Adult Escort Signature of Nurse Date/Time DIVERTICULAR DISEASE OVERVIEW ? A diverticulum is a pouch-like structure that can form through points of weakness in the muscular wall of the colon (ie, at points where blood vessels pass through the wall). Diverticulosis affects men and women equally. The risk of diverticular disease increases with age. It occurs throughout the world but is seen more commonly in developed countries. WHAT IS DIVERTICULAR DISEASE? Diverticulosis ? Diverticulosis merely describes the presence of diverticula. Diverticulosis is often found during a test done for other reasons, such as flexible sigmoidoscopy, colonoscopy, or barium enema. Most people with diverticulosis have no symptoms and will remain symptom free for the rest of their lives. A person with diverticulosis may have diverticulitis, or diverticular bleeding. Diverticulitis ? Inflammation of a diverticulum (diverticulitis) occurs when there is thinning and breakdown of the diverticular wall. This may be caused by increased pressure within the colon or by hardened particles of stool, which can become lodged within the diverticulum. The symptoms of diverticulitis depend upon the degree of inflammation present. The most common symptom is pain in the left lower abdomen. Other symptoms can include nausea and vomiting, constipation, diarrhea, and urinary symptoms such as pain or burning when urinating or the frequent need to urinate. Diverticulitis is divided into simple and complicated forms. ?Simple diverticulitis, which accounts for 75 percent of cases, is not associated with complications and typically responds to medical treatment without surgery. ?Complicated diverticulitis occurs in 25 percent of cases and usually requires surgery. Complications associated with diverticulitis can include the following: ?Abscess ? a localized collection of pus ?Fistula ? an abnormal tract between two areas that are not normally connected (eg, bowel and bladder) ?Obstruction ? a blockage of the colon ?Peritonitis ? infection involving the space around the abdominal organ ?Sepsis ? overwhelming body-wide infection that can lead to failure of multiple organs Diverticular bleeding ? Diverticular bleeding occurs when a small artery located within a diverticulum is eroded and bleeds into the colon. Diverticular bleeding usually causes painless bleeding from the rectum. In approximately 50 percent of cases, the person will see maroon or bright red blood with bowel movements. Is bleeding with a bowel movement normal? ? It is not normal to see blood in a bowel movement; this can be a sign of several conditions, most of which are not serious (eg, hemorrhoids) but some of which are serious and require immediate treatment. Anyone who sees blood after a bowel movement should consult with their healthcare provider to determine if further testing or evaluation is needed. DIVERTICULOSIS AND DIVERTICULITIS DIAGNOSIS ? Diverticulosis is often found during tests performed for other reasons. ?Barium enema ? This is an x-ray study that uses barium in an enema to view the outline of the lower intestinal tract. This is an older test and has been largely replaced by computed tomography (CT) scan. ?Flexible sigmoidoscopy ? This is an examination of the inside of the sigmoid colon with a thin, flexible tube that contains a camera. ?Colonoscopy ? This is an examination of the inside of the entire colon. ?CT scan ? A CT scan is often used to diagnose diverticulitis and its complications. If diverticulitis (not just diverticulosis) is suspected, the above three tests should not be used because of the risk of perforation. TREATMENT Diverticulosis ? People with diverticulosis who do not have symptoms do not require treatment. However, most clinicians recommend increasing fiber in the diet, which can help to bulk the stools and possibly prevent the development of new diverticula, diverticulitis, or diverticular bleeding. Fiber is not proven to prevent these conditions in all patients but may help to control recurrent episodes in some. Increase fiber ? Fruits and vegetables are a good source of fiber. Fiber content of packaged foods can be calculated by reading the nutrition label. Seeds and nuts ? Patients with diverticular disease have historically been advised to avoid whole pieces of fiber (such as seeds, corn, and nuts) because of concern that these foods could cause an episode of diverticulitis. However, this belief is completely unproven. We do not suggest that patients with diverticulosis avoid seeds, corn, or nuts. Diverticulitis ? Treatment of diverticulitis depends upon how severe your symptoms are. Home treatment ? If you have mild symptoms of diverticulitis (mild abdominal pain, usually left lower abdomen), you can be treated at home with a clear liquid diet and oral antibiotics. However, if you develop one or more of the following signs or symptoms, you should seek immediate medical attention: ?Temperature >100.1?F (38?C) ?Worsening or severe abdominal pain ?An inability to tolerate fluids Hospital treatment ? If you have moderate to severe symptoms, you may be hospitalized for treatment. During this time, you are not allowed to eat or drink; antibiotics and fluids are given into a vein. If you develop an abscess of the colon, you may require drainage of the abscess (usually performed by placing a drainage tube across the abdominal wall) or by surgically opening the affected area. Surgery ? If you develop a generalized infection in the abdomen (peritonitis), you will usually require an emergency operation. A two-part operation may be necessary in some cases. ?The first operation involves removal of the diseased colon and creation of a colostomy. A colostomy is an opening between the colon and the skin, where a bag is attached to collect waste from the intestine. The lower end of the colon is temporarily sewed closed to allow it to heal. ?Approximately three to six months later, a second operation is performed to reconnect the two parts of the colon and close the opening in the skin. You are then able to empty your bowels through the rectum. Sometimes patients require up to a year to recover from the first operation, depending on how sick they were. In non-emergency situations, the diseased area of the colon can be removed and the two ends of the colon can be reconnected in one operation, without the need for a colostomy. Surgery versus medical therapy ? An operation to remove the diseased area of the colon may be necessary if you do not improve with medical therapy. After an episode of uncomplicated diverticulitis, elective surgery is generally not required as the risk of another attack or requiring emergency surgery is low. However, patients with persistent symptoms attributable to diverticulitis, a history of complicated diverticulitis, or a compromised immune system should be evaluated for possible surgery to prevent another attack. In such patients, another attack has been associated with a higher risk of complications or . Of course, the decision will also depend in part upon your other medical conditions and ability to undergo surgery. In many cases, an elective operation can be performed laparoscopically, using small incisions, rather than the typical vertical (up and down) abdominal incision. Laparoscopic surgery usually allows you to recover more quickly and shortens the hospital stay. After diverticulitis resolves ? After an episode of diverticulitis resolves, if you have not had a recent colonoscopy, the entire length of the colon should be evaluated to determine the extent of disease and to rule out the presence of abnormal lesions such as polyps or cancer. Recommended tests include colonoscopy, barium enema and sigmoidoscopy, or CT colonography. Diverticular bleeding ? Most cases of diverticular bleeding resolve on their own. However, some people will need further testing or treatment to stop bleeding, which may include a colonoscopy, angiography (a treatment that blocks off the bleeding artery), bleeding scan, or surgery. DIVERTICULAR DISEASE PROGNOSIS Diverticulosis ? Over time, diverticulosis may cause no problems or it may cause episodes of bleeding and/or diverticulitis. Approximately 15 to 25 percent of people with diverticulosis will develop diverticulitis, while 5 to 15 percent will develop diverticular bleeding. Diverticulitis ? Approximately 85 percent of people with uncomplicated diverticulitis will respond to medical treatment, while approximately 15 percent of patients will need an operation. After successful treatment for a first attack of diverticulitis, one-third of patients will remain asymptomatic, one-third will have episodic cramps without diverticulitis, and one-third will go on to have a second attack of diverticulitis. The prognosis tends to remain similar following a second attack of diverticulitis. Only 10 percent of people remain symptom-free after a second attack. Subsequent attacks tend to be of similar severity, not increasing in severity as previously believed. High Fiber Diet What is Dietary Fiber? All fiber comes from plants, bushes, boby or trees. Of course, the ones that we eat provide us with fruits, vegetables and grains. There are many different types of fiber but the three that are most important to the health of the body are: Insoluble Fiber This fiber does not dissolve in water, nor is it fermented by the bacteria residing in the colon. Rather, it retains water and in so doing, helps to promote a larger, bulkier and more regular bowel activity. This, in turn, may be important in preventing disorder such as diverticulosis and hemorrhoids, and in sweeping out certain toxins and cancer causing carcinogens. Sources of insoluble fiber are: ? whole grain wheat and other whole grains ? corn bran, including popcorn, unflavored and unsweetened ? nuts and seeds ? potatoes and the skins from most fruits from trees such as apples, bananas and avocados ? many green vegetables such as green beans, zucchini, celery and cauliflower ? some fruit plants such as tomatoes and kiwi Soluble Fiber These fibers are fermented or used by the colon bacteria as a food source or nourishment. When these good bacteria grow and thrive, many health benefits occur in both the colon and the body. Soluble fiber is present in some degree in most edible plant foods, but the ones with the most soluble fiber include: ? legumes such as peas and most beans, including soybeans ? oats, rye and barley ? many fruits such as berries, plums, apples bananas and pears ? certain vegetables such as broccoli and carrots ? most root vegetables ? psyllium husk supplement products Prebiotic Soluble Fiber These are relatively newly discovered soluble plant fibers. The technical name for this fiber is inulin or fructan. When these soluble fibers are fermented by the good colon bacteria, some further significant health benefits have been shown to occur by research in many medical centers. These soluble prebiotic fibers occur in significant amounts in: ? asparagus ? yams ? onions ? garlic ? bananas ? leeks ? agave ? chicory and other root vegetables such as [place] artichokes ? wheat, rye and barley (smaller amounts) Benefits of a High Fiber Diet The health benefits of a high fiber diet, consumed on a regular basis and reaching recommended amounts (below), are now fairly well-defined. There are some additional benefits in the early research stage with the prebiotic soluble fibers. What is now known regarding a high fiber diet include: Bowel Regularity A high fiber diet promotes regularity with a softer, bulkier and regular stool pattern. This decreases the chance of hemorrhoids, diverticulosis and perhaps colon cancer. Cholesterol and Reduced Triglycerides The soluble fibers are the ones that will reduce cholesterol levels when used on a regular basis. Psyllium husk and prebiotic soluble fiber will also reduce cholesterol. They may also reduce the incidence of coronary heart disease. Oats, flax seeds and legumes or beans are the recommended fibers. Colon Polyps and Cancer It is still not certain if a high fiber diet helps prevent colon cancer. Considerable research suggests that this may occur. Certainly it makes sense to increase regularity and so speed the movement of cancer causing carcinogens through the bowel. In addition, reducing a heavy meat diet reduces the bile flow from the liver in a favorable way. This, too, reduces the amount of carcinogens that reach and are manufactured in the colon. Finally, a high fiber diet, including prebiotic soluble fiber, increases the integrity and health of the wall of the colon. The risk of cancer may be reduced. Colon Wall Integrity A high fiber diet changes the bacterial makeup of the colon toward a more favorable balance. For instance, it is known that those people with obesity, diabetes type 2 and inflammatory bowel disease have a predominance of bad bacteria in the colon. This, in turn, may render the bowel wall weak and allow bacteria and, indeed, even toxins to seep through. A high fiber diet with a modest reduction in animal and meat products may return the bacterial makeup to a more positive balance. This, in particular, has been seen when the soluble fiber prebiotics are added to the diet. Blood Sugar Soluble fiber such as in legumes (beans), oats and in prebiotic fibers slows the absorption of blood sugar and so helps regulate the sugar in the blood. Insoluble fiber on a regular basis is associated with reduced risk of type 2 diabetes. Weight Loss High fiber diets are more filling and give a sense of fullness sooner than an animal and meat based diet does. In addition, the soluble prebiotic fibers have been shown to turn off the hunger hormones produced in the wall of the gut and to increase the hormones that give a sense of fullness. Those hormones are made in the wall of the gut. New medical research has shown that the bacterial makeup in the colon in overweight people is abnormal to the extent that they manufacture and absorb almost twice the number of calories through the colon wall as do normals. Prebiotic fibers (below) will help change this hormonal balancein a favorable way. Bacteria and the Function of the Colon The colon finishes the digestive process. Hopefully, the waste products move through in a nice regular manner. Insoluble fibers help this process by retaining water and so producing a bulkier, softer stool, which is easy to pass. The additional role of the colon is to provide a home for an enormous number of micro-organisms, mostly bacteria. Recent research has shown that there are over 1,000 species of bacteria with a total bacterial count ten times the number of cells in the body. These bacteria play a major role in keeping the colon wall itself healthy. In addition, these good bacteria produce a very strong immune system for the body. They significantly increase calcium absorption and bone density. They provide other documented benefits. It is the soluble fibers in the diet that are so effective in stimulating the growth of good colon bacteria. How Much is Enough? The amount of fiber in food is measured in grams. National nutritional authorities recommend the following amounts of dietary fiber daily. Under Age 50 Over Age 50 Men 38 grams 30 grams Women 25 grams 21 grams For a week or so, it is best to tally the amount of fiber you are consuming. Boxed and packaged foods will have the amount of fiber per serving on the nutrition label. Which Fibers and Which Foods are Best? As noted, healthy fiber is only found in plants. The three major categories are whole grains, fruits and vegetables. Whole Grains Wheat, oats, barley, wild or brown rice, amaranth, buckwheat, bulgur, corn, millet, quinoa, rye, sorghum, teff and triticals. By far, wheat, oats and wild or brown rice are most common. Always buy whole grain products. White bread, baked goods and rolls almost always are made from wheat flour. Wheat flour is white because most of the fiber, vitamins and other nutrients have been removed. Try not buy enriched grains. What this means is that simple white flour has had vitamins added to it by the awning maker. The word, enriched, implies a good and healthy product. On the contrary, enriched means that most of the fiber has been removed and a few vitamins added. Fruits Fruits come from trees such as apple and pear or from bushes or boby. You should eat a wide variety of fruits, preferably with every meal. In many cases, the skin of a fruit such as apple will contain much of the insoluble fiber while the pulp contains most of the soluble fiber. To the extent possible, buy organic fruits as these will have little or no pesticides. Always wash fruit. Vegetables Eat a wide variety of vegetables. They should be a mainstay of lunch and dinners. Frozen vegetables retain as much nutrition and fiber as fresh vegetables. As with fruit, try to buy organic to reduce any residual pesticide ingestion. Wash fresh vegetables thoroughly. Cruciferous vegetables such as broccoli, [place] sprouts and cauliflower contain certain chemicals such as sulforaphane. This substance has very strong anti-cancer properties and should be eaten frequently. Legumes, Beans, Peas and Soybeans These vegetables have plenty of soluble fiber and should be part of a varied vegetable intake. Beans, in particular, contain a certain type of fiber that may lead to harmless gas or bloating. Nuts and Seeds These are rich sources of fiber and are a good substitute for sweets such as candies and baked sweet goods. While nuts and seeds are rich in fiber, they also contain vegetable fat and so can and do add calories. Read the Labels As noted, fresh and frozen foods are usually better. They have good nutrition and few, if any, chemicals added to them. When buying packaged foods and, in particular grains, look for three things: ? The first word on the label should be whole, such as whole wheat or whole grain. ? Check out the calories and the amount of fiber in a serving. ? How many and what other additives or chemicals are added. Fewer is always better. Do you know what each additive does? Some are added not for the benefit of the printer slotter helper but rather for manufacturers. These could and do include sugar, artificial flavor, chemicals to prevent oxidation and spoilage, emulsifiers to blend the product. You have to be a still operator brandy. Fiber Facts, Nuggets and Pearls ? For breakfast you can easily get the day started well by using a high fiber, whole grain cereal. Check the labels. Add fruit such as blueberries and bananas. If you are an egg eater, use whole wheat or grain toast. Adding wheat germ gives you a good fiber kick. ? Always use whole grain or wheat with rolls and sandwiches. Does your fast food store not have them? Perhaps you look elsewhere. Eating an occasional black mcdonnell or veggie burger provides variety. ? Snacks should consist of fruit and/or nuts. While nuts are loaded with fiber, they are an energy rich food, meaning they have a lot of calories in a small packet. ? Fruit juices should contain pulp. Clear juices such as clear orange, pear or apple juice contain little fiber and have a lot of fructose. Prune juice is usually high in fiber. ? Homemade soups ? adding fresh or frozen vegetables to a chicken or vegetable stock is a good way to start homemade soup. ? Salads ? adding cooked and then chilled vegetables provide great flavoring to almost any salad. Remember, a cotto salad has lots of cooked corn in it. Small slices of apples or oranges and nuts such as chopped walnuts or sliced almonds always adds taste, variety and fiber to almost any salad. ? Fruit ? Try to eat fruit of some type with almost every meal. ? Rethink how you place the various foods on your dinner plate. Reducing the portions of the meat or animal food portion to the side with equal or more portions of vegetables, legumes and fruits portion always allows for more fiber. There was never anything magic about making the meat or animal food portion the main part of the dinner plate. Eating from smaller plates can, over time, trick your mind and wildlife science professor habit of using a dinner plate. Again, there is nothing magic in an 11, 12, or 13 inch dinner plate. Fiber Supplements There are a variety of fiber supplements available on the food or pharmacy shelves. Psyllium This soluble plant fiber has been used in [place] for over 2,000 years. It is a soluble fiber with mucilage in it. This acts to retain a lot of water and also is fermented by colon bacteria. When 7 grams a day are used, it does lower cholesterol. Metamucil in various forms is psyllium. Methyl Cellulose All the cellulose products come from finely ground wood chips which are then treated in a variety of ways such as boiling in acids. Methyl cellulose is an insoluble fiber which does dissolve in water. It is also an emulsifier, meaning it blends oils and water. Citrucel is methyl cellulose (MC). MC may not be appropriate for Crohn?s disease or ulcerative colitis as several medical studies have shown that certain emulsifiers dissolve the mucous lining of the colon in animals prone to Crohn?s disease. This then allows bacteria to invade the underlying tissue. Inulin Inulin is a soluble prebiotic fiber found in many foods and which are fermented mostly in the left side of the colon. It is available in a supplement as generic inulin and in Fiber Choice. Oligofructose FOS These are also prebiotic fibers. They are fermented very quickly in the right side of the colon. Prebiotin This product is a combination of oligofructose, which feeds the bacteria in the right side of the colon and inulin, which does the same in the left side of the colon. There seems to be a benefit for this particular formula based on medical research. Prebiotic Soluble Fiber These may be the healthiest of all the soluble fibers. They grow in many plants and have had a great deal of research done on them in the last 10-15 years. These fibers are found in asparagus, yams and other root vegetables such as chicory, garlic, onion, leeks and in smaller amounts in wheat. This research has shown the following: ? Increase in good and decrease in bad colon bacteria ? Increase calcium absorption and enhanced bone mass ? Enhanced immune system ? Appetite and weight control by changing the hormone appetite signals to the brain ? May decrease colon cancer incidence ? Reduce or correct a leaky colon Eating a wide variety of plant food up to the recommended amount will likely give you enough prebiotic fiber. Supplements such as Prebiotin can be added to the diet. Short Chain Fatty Acids (SCFA) Some rather remarkable research findings have shown that one of the benefits of ingesting a lot of soluble fiber, in particular the prebiotic ones, results in larger amounts of SCFAs in the colon. These SCFAs are made by the good bacteria in the colon such as Bifidobacter and Lactobacillus. These small molecules have been shown to do the following: ? Enhance the health and integrity of the colon wall ? Provide nourishment for the cells that actually line the colon ? Increases the acidity of the colon which is a very real health benefit ? Stabilize blood sugar for diabetics ? Reduce blood cholesterol and triglyceride ? Significantly enhance immunity ? May be a benefit for Crohn?s disease and ulcerative colitis patients Fiber and Gas Everyone has intestinal gas and that is a good thing. It means that bacteria, hopefully the good ones, are thriving. The normal amount of flatus passed each day depends on sex and what is eaten. The normal number of flatus is 10-20 times a day. When the bacteria that make intestinal gases are growing, it also means that other good bacteria are using the same fibers to grow and produce multiple health benefits, including the production of healthy short-chain fatty acids. These substances are produced quietly in the colon and produce many health-related outcomes. Soluble fiber should always be used in a gradual manner. If too much is consumed at any one time, then excess, but harmless, intestinal gas can occur. People with irritable bowel syndrome are particularly prone to bloating and mild cramping. In this instance, soluble fiber in the diet or supplement should be used in small doses and increased gradually. Finally, prebiotic fibers tend to cause the production of short-chain fatty acids which acidify the colon. This, in turn, reduces or stops the growth of bacteria that make the smelly hydrogen sulfide gases that produce noxious flatus. People who consume many vegetables with prebiotics or take a prebiotic fiber supplement often have non-odoriferous flatus. Fiber and Irritable Bowel Syndrome Irritable bowel syndrome (IBS) is one of the most common disorders of the lower digestive tract. The symptoms of IBS can be quite varied. They can be a mix of several symptoms such as constipation, diarrhea, crampy abdominal discomfort, bloating and gas. An attack of IBS can be triggered by emotional tension and anxiety, poor dietary habits and certain medications. It is now known that infections in the intestine can lead to long-term IBS symptoms. Increased amounts of fiber in the diet can help relieve the symptoms of irritable bowel syndrome by producing soft, bulky stools. This helps to normalize the time it takes for the stool to pass through the colon. Recent medical research with newer techniques has shown some surprising and dramatic findings for IBS patients. Specifically, there is a very significant and abnormal shift of bacteria from those that provide health benefits to those bad bacteria that we really do not want in the gut. The technical name for this bad group of bacteria is called Firmicutes. Along with this abnormal bacterial collection, there is a smoldering low-grade inflammation in the gut wall that may contribute to symptoms. The goal for IBS patients should be to gradually increase the soluble dietary fibers in the diet so as to promote the growth of good bacteria and so suppress the bad ones along with the associated inflammation. IBS patients need to be careful of the amount of soluble fiber they consume. The reason for this is that, while the good colon bacteria thrive on these fibers and produce health benefits, other gas-forming bacteria may generate excessive but harmless gas and subsequent bloating. Thus, soluble plant fibers or a dietary prebiotic supplement should be taken in small initial doses and then gradually increased to tolerance. Fiber and Colon Polyps/Cancer Colon cancer is a major health problem. This disease is most common in Western cultures. It is not seen very often in rural cultures where the diet is mostly plant based. Usually, colon cancer starts out as a colon polyp, a benign mushroom-shaped growth. In time it grows, and in some people it becomes cancerous. Colon cancer is usually always curable if polyps are removed when found or if surgery is performed at an early stage. It is now known that people can inherit the risk of developing colon cancer, but diet is important, too. As noted, there is a very low rate of colon cancer in residents of countries where grains are unprocessed and retain their fiber. It seems that in the [place] world, cancer-containing agents (carcinogens) remain in contact with the colon wall for a longer time and in higher concentrations. So, a large bulky stool may act to dilute these carcinogens by moving them through the bowel more quickly. Less carcinogenic exposure to the colon may mean fewer colon polyps and less cancer. A very current review of the entire world?s literature on the effect of fiber on colon polyps and cancer prevention has shown rather clearly that for every 10 grams of fiber added to the diet, there is a 10% reduction in incidence of colon cancer. So the recommended 30 gram fiber diet would result in a 30% less chance of getting these tumors. There are also substances produced in the colon by the good bacteria that seem to retard certain pre-cancer factors from developing. They are called short-chain fatty acids (SCFA). See above for description of SCFAs. A high fiber diet increases these substances. So, the combination of dietary fiber and the production of short-chain fatty acids have a clear health benefit. Fiber and Diverticulosis Prolonged, vigorous contraction of the colon over a long period of time may result in diverticulosis. This increased pressure causes small and, eventually, larger ballooning pockets to form. These pockets by themselves cause no problem. However, sometimes they become infected (diverticulitis) or even break open (perforate) causing infection or inflammation within the abdomen (peritonitis). A high fiber diet increases the bulk in the stool and thereby reduces the pressure within the colon. By so doing, the formation of pockets may be reduced or possibly even stopped. In the past, many physicians were fearful that seeds as in tomatoes, nuts or berries were harmful and could get inside these pockets and rattle around, causing damage. We now know that this has never been the case and that these foods contain lots of fiber and are actually beneficial for diverticulosis patients. Certain bulking agents such as psyllium are traditional types of bulk producing supplements. Psyllium is a soluble fiber. Combining it with insoluble fiber as in wheat bran or corn bran (no gluten) can enhance this bulking effect even more. A product containing a prebiotic, psyllium and wheat bran is probably a very good combination for bowel regularity. Prebiotin Regularity/Diverticulosis is one such product. Activity:: no lifting over 20#'s or strenuous activity Diet:: Carb Counting Discharge Orders Discharge Orders: Discharge Order (Routine); Ordered 04/23/20 Ordered By: Kyung Aburto DS: Diagnosis Discharge Diagnosis (1) Diverticula of colon: Status: Acute (2) Gastroparesis due to secondary diabetes: Status: Acute (3) BMI 45.0-49.9, adult: Status: Acute (4) Gastric motility disorder: Status: Acute (5) Stomach atony: Status: Acute (6) GERD (gastroesophageal reflux disease): Status: Chronic (7) Diabetes mellitus type 2, uncontrolled: Status: Chronic
--- NOTE | 2020-04-23 12:48 | W.COLOREPORT ---
Date of service: 04/23/20 Time of Service: 12:48 Colonoscopy Report Date of procedure: 04/23/20 Pre-op diagnosis general: gatroparesis/CRC screen Post-op diagnosis procedure note: other (diverticula ) Surgeon: Kyung Aburto Anesthesia proc note operative: GETA Estimated blood loss (mL): 0 Pathology: none sent Complications: None Disposition: same day Prep: Miralax/Dulcolax Retraction Time: 8mins Procedure Description: After informed consent was obtained the patient was taken to the procedure room and placed in a left decubitous position. Monitors were applied and a time out was done. The patients name, date of , procedure, allergies to medications and metal in their body was reviewed. The patient was then sedated. Once sedated and comfortable a rectal exam was done. External exam was normal. Internal exam revealed a normal sphincter tone and no palpable masses. The scope was then introduced and retrofelexed. no internal hemorrhoids were identified. The scope was then advanced to the cecum w/out difficulty. The TI and appendiceal orifice were identified. The prep was adequate. The scope was then slowly retracted over 8 minutes back into the rectum. There were no AVMs or polyps visualized today. She does have a few small scattered diverticula confined to the sigmoid colon. There is no signs of active bleeding or infection. The scope was removed and the patient was woken up and taken back to Same day surgery in stable condition. The patient tolerated the procedure well and there were no immediate complications. Follow up: The patient should follow up in 10 years unless they develop changes in bowel habits or other new gastrointestinal complaints.
[2020-04-23 13:10] VITALS: BP 132/86; PULSE 88; RESP 16; TEMP 36.6; O2SAT 95
== END 2020-04-23 14:26 | disposition home or self-care (01) ==
PROVIDERS: PCP Nurse Practitioner Family; Visit Provider Surgery
PROC: 0DJD8ZZ Inspection of Lower Intestinal Tract, Via Natural or Artificial Opening Endoscopic (ICD-10-PCS; CPT 45378; principal; 2020-04-23 11:45)
DX: Z12.11 Encounter for screening for malignant neoplasm of colon (principal); K57.30 Diverticulosis of large intestine without perforation or abscess without bleeding; E11.42 Type 2 diabetes mellitus with diabetic polyneuropathy; G47.33 Obstructive sleep apnea (adult) (pediatric); I10 Essential (primary) hypertension; E11.43 Type 2 diabetes mellitus with diabetic autonomic (poly)neuropathy; K31.84 Gastroparesis
CPT/HCPCS: 45378; 81025; 82565; J2001; J2765

== ENCOUNTER 2020-04-30 16:25 | Outpatient (REF) | payer BC, SELFPAY ==
[2020-04-30 21:05] LABS: Abs Immature Grans 0.03 10^3/uL (0.0-0.06); Absolute Basophil Count 0.06 10^3/uL (0.0-0.2); Absolute Eosinophil Count 0.59 10^3/uL (0.0-0.7); Absolute Monocyte Count 0.74 10^3/uL (0.1-0.8); Basophils % 0.5; Eosinophils % 5.2; HCT 44.9 % (36.0-46.0); HGB 14.5 g/dL (11.2-15.7); Immature Grans % 0.3; Lymphocytes % 30.2; MCH 28.2 pg (27.0-33.0); MCHC 32.3 % (32.0-36.0); MCV 87.2 fL (80-95); MPV 12.5 fL (8.0-11.0); Monocytes % 6.5; Neutrophils % 57.3; Nucleated RBC 0 %; Platelet Count 275 10^3/uL (130-400); RBC 5.15 10^6/uL (3.93-5.22); RDW-SD 41.6 fL; WBC 11.34 10^3/uL (4.4-10.8)
[2020-04-30 21:13] LABS: Absolute Lymphocyte Count 3.42 10^3/uL (1.2-3.4)
== END 2020-04-30 16:26 | disposition home or self-care (01) ==
LOC: NCHCN 16:25
PROVIDERS: PCP Nurse Practitioner Family; Visit Provider Nurse Practitioner Family
DX: K11.8 Other diseases of salivary glands (principal)
CPT/HCPCS: 85025